=== PATIENT | female | born 1930 | race Caucasian/White ===

== ENCOUNTER 2020-06-28 09:47 | Outpatient (CLI) | payer MEDICARE, BC | END 2020-06-28 09:48 | disposition home or self-care (01) | LOC: CSHCT 09:47 | PROVIDERS: ATTEND Physician Assistant Medical | DX: R10.32 Left lower quadrant pain (principal); R10.9 Unspecified abdominal pain; K57.30 Diverticulosis of large intestine without perforation or abscess without bleeding | CPT/HCPCS: 74176; 82565 ==

== ENCOUNTER 2020-09-13 15:38 | Outpatient (CLI) | payer MEDICARE, BC | END 2020-09-13 15:39 | disposition home or self-care (01) | LOC: CSHMRI 15:38 | PROVIDERS: ATTEND Internal Medicine | DX: M54.16 Radiculopathy, lumbar region (principal); Z98.890 Other specified postprocedural states; M47.816 Spondylosis without myelopathy or radiculopathy, lumbar region; M48.061 Spinal stenosis, lumbar region without neurogenic claudication | CPT/HCPCS: 72148 ==